=== PATIENT | female | born 1990 | race Hispanic/Latino ===

== ENCOUNTER 2017-12-30 20:54 | Emergency (ER) | payer OTHER ==
[2017-12-30 21:29] VITALS: BP 127/74; PULSE 73; RESP 18; TEMP 98; O2SAT 100
[2017-12-30] MEDS ORDERED: Lidocaine 1% Inj (20ml) IJ ONE (21:33)
[2017-12-30] MEDS ORDERED: Lidocaine 1% Inj (20ml) ONE (21:44)
--- NOTE | 2017-12-30 21:50 | ED PDOC ---
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 Patient had her tetanus vaccination in 2016. Of note patient is right handed. PCP: none provided Past Medical History Reviewed: Historical Data, Nursing Documentation, Vital Signs Vital Signs: Last Vital Signs Temp 98 F 12/30/17 21:26 Pulse 73 12/30/17 21:26 Resp 18 12/30/17 21:26 BP 127/74 12/30/17 21:26 Pulse Ox 100 12/30/17 21:26 - Medical History PMH: No Chronic Diseases - Surgical History Surgical History: No Surg Hx - Family History Family History: States: Unknown Family Hx - Allergies Allergies/Adverse Reactions: Allergies Allergy/AdvReac Type Severity Reaction Status Date / Time vancomycin Allergy RASH Verified 12/30/17 21:26 Review of Systems ROS Statement: Except As Marked, All Systems Reviewed And Found Negative Musculoskeletal: Positive for: Hand Pain (left hand laceration) Physical Exam - Reviewed Nursing Documentation Reviewed: Yes Vital Signs Reviewed: Yes - Physical Exam Appears: Positive for: Non-toxic, No Acute Distress Head Exam: Positive for: ATRAUMATIC, NORMAL INSPECTION, NORMOCEPHALIC Skin: Positive for: Normal Color, Warm, Dry Eye Exam: Positive for: Normal appearance Neck: Positive for: Normal, Painless ROM Cardiovascular/Chest: Positive for: Regular Rate, Rhythm. Negative for: Murmur Respiratory: Positive for: Normal Breath Sounds. Negative for: Wheezing, Respiratory Distress Extremity: Positive for: Normal ROM Neurologic/Psych: Positive for: Alert, Oriented Comments: LEFT HAND: 1 cm laceration of distal tip of index finger - ECG O2 Sat by Pulse Oximetry: 100 (RA) Pulse Ox Interpretation: Normal Medical Decision Making Medical Decision Making: Initial Impression: left hand laceration Initial Plan: Lidocaine 1% 1ml IJ Scribe Attestation: Documented by Arpan De Leon acting as a scribe for Smooth LYONS Provider Scribe Attestation: All medical record entries made by the Scribe were at my direction and personally dictated by me. I have reviewed the chart and agree that the record accurately reflects my personal performance of the history, physical exam, medical decision making, and the department course for this patient. I have also personally directed, reviewed, and agree with the discharge instructions and disposition. Procedures - Laceration/Wound Repair Left Distal Finger Wound Length (cm): 1 Wound's Depth, Shape: linear Anesthesia: 1% Lidocaine (for digital block) Wound Repaired With: Sutures Suture Size/Type: 5:0 Number of Sutures: 2 (prolene sutures) Wound Complexity: Simple Disposition - Clinical Impression Clinical Impression: Finger laceration - Patient ED Disposition Is Patient to be Admitted: No - Disposition Disposition: Routine/Home Disposition Time: 22:06 Condition: FAIR Additional Instructions: RETURN TO ED OR URGENT CARE/PMD IN 7 DAYS TO REMOVE SUTURES Instructions: Laceration Repair With Stitches (DC) Forms: [employer] (Korean)
== END 2017-12-30 22:13 | disposition home or self-care (01) ==
LOC: H.ER 20:54
DX: S61.211A Laceration without foreign body of left index finger without damage to nail, initial encounter (principal); W26.0XXA Contact with knife, initial encounter; Y92.89 Other specified places as the place of occurrence of the external cause